=== PATIENT | female | born 1975 | race African-American/Black ===

== ENCOUNTER 2022-11-19 11:30 | Emergency (ER) | payer BC ==
[~2022-11-19] VITALS: Ht 154.9 cm; Wt 63.5 kg
[2022-11-19 12:36] VITALS: BP 125/91; PULSE 81; RESP 20; TEMP 98; O2SAT 100
[2022-11-19] MEDS ORDERED: KETOROLAC 15 MG/ML VIAL IM ONE (13:20)
[2022-11-19] MEDS ORDERED: ACETAMINOPHEN EXTRA STRENGTH 500 MG TAB PO ONE (13:20)
== END 2022-11-19 15:01 | disposition home or self-care (01) ==
LOC: MED 11:30
DX: S09.90XA Unspecified injury of head, initial encounter (principal); M54.2 Cervicalgia; M54.50 Low back pain, unspecified; W11.XXXA Fall on and from ladder, initial encounter; Y93.89 Activity, other specified; Y92.89 Other specified places as the place of occurrence of the external cause; Y99.8 Other external cause status
CPT/HCPCS: 70450; 81025; 96372; 99285; J1885